=== PATIENT | female | born 1950 ===

== ENCOUNTER 2023-04-27 05:22 | Day surgery (SDC) | payer OTHER ==
[~2023-04-27 05:22] MED LIST: LAMICTAL25 MG; SEROQUEL25 MG
== END 2023-04-27 12:10 | disposition home or self-care (01) ==
LOC: CIR.AMB 05:22
PROVIDERS: ATTEND Orthopaedic Surgery
DX: M75.42 Impingement syndrome of left shoulder (principal); M19.012 Primary osteoarthritis, left shoulder; M75.22 Bicipital tendinitis, left shoulder; M75.122 Complete rotator cuff tear or rupture of left shoulder, not specified as traumatic; M24.112 Other articular cartilage disorders, left shoulder; I10 Essential (primary) hypertension; Z88.6 Allergy status to analgesic agent; Z20.822 Contact with and (suspected) exposure to COVID-19